=== PATIENT | male | born 1950 | race Caucasian/White ===

== ENCOUNTER 2023-08-02 19:43 | Emergency (ER) | payer MEDICARE, SELFPAY ==
[2023-08-02 19:47] VITALS: BP 109/70; PULSE 74; TEMP 36.6; O2SAT 95; BMI 29.5
--- NOTE | 2023-08-02 19:59 | CT_ITS ---
The [address] [address] Patient Name: LASHELL CABRALES MRN: [id number] date: 1950 Sex: M Assigned Patient Location: ER Current Patient Location: Accession/Order Number: [id number] Exam Date: 08/02/2023 21:25 Report Date: 08/02/2023 23:21 At the request of: FERNY ASHLEY Procedure: CT angio abd aorta runoff EXAM: CT angio abd aorta runoff HISTORY: Right leg hematoma, swelling , on anticoagulation. History of prior right lower extremity vein harvesting COMPARISON: None. TECHNIQUE: CTA of the abdomen and pelvis as well as the bilateral lower extremities. Sagittal and coronal MIP reconstructions. The image processing performed on a separate workstation. FINDINGS: TUBES AND IMPLANTS: AICD leads LOWER CHEST: Mild cardiomegaly. ABDOMEN and PELVIS ABDOMINAL WALL AND SOFT TISSUES: There is a small right knee joint effusion which communicates with a small amount of fluid seen in the posterior knee. Fluid measures 22 Hounsfield units. BONES: No suspicious lesions. Multilevel degenerative changes of the spine. No acute fracture or dislocation. ARTERIES: Mild aortoiliac atherosclerosis without dissection. There is a 4.1 centimeter infrarenal aortic aneurysm. There is moderate stenosis of the right renal artery origin. Otherwise the aortic branches, pelvic inflow and visualized lower extremity arteries are patent with three-vessel runoff to the ankle and two-vessel runoff to the foot. No evidence of active arterial extravasation. VEINS: Incompletely evaluated due to phase of imaging. LYMPH NODES: Unremarkable. PERITONEUM/ RETROPERITONEUM: Unremarkable. BOWEL: Stool filled colon and rectum. Moderate stool burden APPENDIX: Not clearly identified LIVER: No suspicious lesions. Mild enlargement measuring 18.3 centimeters with probable steatosis. GALLBLADDER: Unremarkable. BILE DUCTS: Not dilated SPLEEN: Unremarkable. PANCREAS: Unremarkable. ADRENALS: Unremarkable. KIDNEYS/ URETERS: Unremarkable. REPRODUCTIVE ORGANS: Mild prostatomegaly URINARY BLADDER: Unremarkable CT/CT angio abd aorta runoff IMPRESSION: 1. No evidence of active arterial extravasation. 2. Small right knee joint effusion which communicates with a small amount of fluid seen in the posterior knee, the fluid is mildly complex and likely represents a ruptured Hugo's cyst. 3. A 1.1 centimeter infrarenal aortic aneurysm. 4. Moderate stenosis of the right renal artery origin. 5. Mild hepatomegaly with probable steatosis. 6. Stool-filled colon and rectum with moderate stool burden. 7. Mild prostatomegaly. Electronically authenticated by: LIDIA LEMON Date: 08/02/2023 23:21
--- NOTE | 2023-08-02 20:02 | ED_ITS ---
Documented by User: [email or web address] 08/02/23 21:33 HPI HPI - General Adult General Chief complaint: Extremity Injury, Lower Stated complaint: Lower Extremity Pain Time Seen by Provider: 08/02/23 19:44 Source: patient Mode of arrival: walk-in Limitations: no limitations History of Present Illness HPI narrative: Patient is a 73-year-old male who presents to the emergency department with concern for pain and swelling in the right lower extremity. He states he hit his right anterior midshaft kline on a table almost 2 weeks ago. He states there was a hard lump and bruising to the anterior tibia but he now has diffuse swelling, pain and bruising to the entire lower leg distal to the knee. He reports pain and swelling of the foot. He is ambulatory. He takes Pradaxa daily. Related Data Previous Rx's ?Medication ?Instructions ?Recorded hydrocodone 5 mg-acetaminophen 325 1 tab PO Q6H PRN pain 3 days #12 08/02/23 mg tablet tabs Allergies Allergy/AdvReac Type Severity Reaction Status Date / Time morphine AdvReac Intermediate Hives Verified 08/02/23 19:47 Opioid HPI Opioid Management Most Recent Opioid Data: Last Pain Scale 7 08/02/23 20:21 Review of Systems ROS Constitutional Denies: fever or chills Ears, nose, mouth, and throat Denies: throat pain or nasal congestion Cardiovascular Denies: chest pain Respiratory Denies: shortness of breath or cough Gastrointestinal Denies: nausea or vomiting Genitourinary Denies: painful urination Musculoskeletal Reports: extremity pain and extremity swelling; Denies: back pain or neck pain Integumentary/Breast Denies: rash Hematologic/Lymphatic Denies: easy bruising or easy bleeding Exam Narrative Exam Narrative: Gen.: Awake, alert, in no distress Head: Normocephalic, atraumatic ENT: Moist mucous membranes Respiratory: No respiratory distress Extremities: Moves extremities equally, Right lower extremity is edematous and diffusely mildly tender of the distal foot and lower leg. Calf is diffusely swollen. No red streaking or erythema. Healing ecchymosis noted to the medial foot and ankle. Healing ecchymosis noted to the right anterior tibia. No right knee pain or swelling. Psych: Normal mood and affect Neuro: No focal neuro deficit Skin: Warm, dry, intact Constitutional Vital Signs, click to edit/add: Last Vital Signs Temp 98 F 08/02/23 19:47 Pulse 74 08/02/23 20:21 Resp 18 08/02/23 19:47 BP 109/70 08/02/23 19:47 Pulse Ox 98 08/02/23 20:29 O2 Del Method Room Air 08/02/23 20:29 Course Vital Signs Vital signs: Vital Signs Temperature 98 F 08/02/23 19:47 Pulse Rate 74 08/02/23 19:47 Respiratory Rate 18 08/02/23 19:47 Blood Pressure 109/70 08/02/23 19:47 Pulse Oximetry 95 08/02/23 19:47 Oxygen Delivery Method Room Air 08/02/23 19:47 Temperature 98 F 08/02/23 19:47 Pulse Rate 74 08/02/23 20:21 Respiratory Rate 18 08/02/23 19:47 Blood Pressure 109/70 08/02/23 19:47 Pulse Oximetry 98 08/02/23 20:29 Oxygen Delivery Method Room Air 08/02/23 20:29 Medical Decision Making [facility] Narrative Medical decision making narrative: 2129: Vital signs within normal limits, Labs obtained within normal limits as well. Patient sent for CT angio of the right lower extremity. Ultrasound is unavailable and the patient has injury with swelling and bruising to the right lower extremity. Suspect hematoma but will obtain imaging to rule out anything else concerning. Case is turned over to attending physician at this time for disposition pending CT results. Medical Records Medical records reviewed: Yes I reviewed the patient's medical records Lab Data Lab results reviewed: Yes I reviewed the patient's lab results Labs: Lab Results 08/02/23 Range/Units 20:12 WBC 8.4 (4.0-11.0) 10^3/uL RBC 4.26 L (4.70-6.10) 10^6/uL Hgb 13.5 L (14.0-18.0) g/dL Hct 40.4 L (42.0-54.0) % MCV 94.8 H (80.0-94.0) fL MCH 31.7 (25.9-34.0) pg MCHC 33.4 (29.9-35.2) g/dL RDW 12.8 (11.0-15.0) % Plt Count 213 (150-450) 10^3/uL MPV 10.5 (9.5-13.5) fL Neut % (Auto) 61.3 (43.0-75.0) % Lymph % (Auto) 20.6 (20.5-60.0) % [place] % (Auto) 9.8 (1.7-12.0) % Eos % (Auto) 7.6 H (0.9-7.0) % Baso % (Auto) 0.5 (0.2-2.0) % Neut # (Auto) 5.2 (1.4-6.5) 10^3/uL Lymph # (Auto) 1.7 (1.2-3.8) 10^3/uL [place] # (Auto) 0.8 (0.3-0.8) 10^3/uL Eos # (Auto) 0.6 (0.0-0.7) 10^3/uL Baso # (Auto) 0.0 (0.0-0.1) 10^3/uL Abs Immat Gran (auto) 0.02 (0.00-0.03) 10^3/uL Imm/Tot Granulo (auto) 0.2 (0.0-0.5) % PT 10.1 (9.0-11.6) sec INR 0.95 Sodium 139 (136-145) mmol/L Potassium 4.0 (3.5-5.1) mmol/L Chloride 101 (98-107) mmol/L Carbon Dioxide 30.1 (21.0-32.0) mmol/L Anion Gap 11.9 BUN 16.0 (7.0-18.0) mg/dL Creatinine 1.05 (0.70-1.30) mg/dL Est GFR ( Amer) >60 (>=60) Est GFR (Non-Af Amer) >60 (>=60) BUN/Creatinine Ratio 15.2 Glucose 95 (74-106) mg/dL Calcium 9.3 (8.5-10.1) mg/dL Discharge Plan Discharge Stand Alone Forms: Portal Instructions Chief Complaint: Extremity Injury, Lower Clinical Impression: Hugo's cyst, ruptured, Contusion of lower limb Patient Disposition: Home, Self-Care Prescriptions / Home Meds: New hydrocodone-acetaminophen 5-325 mg tablet 1 tab PO Q6H PRN (Reason: pain) 3 Days Qty: 12 0RF Rx Instructions: DX: M79.604 Print Language: Welsh Instructions: Contusion in Adults (ED) Additional Instructions: follow up with orthopedics Referrals: SUNG CAIN [Primary Care Provider] - 1 week Documented by User: Master Churchill MD 08/02/23 23:52 HPI HPI - General Adult General Chief complaint: Extremity Injury, Lower Stated complaint: Lower Extremity Pain Time Seen by Provider: 08/02/23 19:44 Related Data Previous Rx's ?Medication ?Instructions ?Recorded hydrocodone 5 mg-acetaminophen 325 1 tab PO Q6H PRN pain 3 days #12 08/02/23 mg tablet tabs Allergies Allergy/AdvReac Type Severity Reaction Status Date / Time morphine AdvReac Intermediate Hives Verified 08/02/23 19:47 Opioid HPI Opioid Management Most Recent Opioid Data: Last Pain Scale 7 08/02/23 20:21 Exam Constitutional Vital Signs, click to edit/add: Last Vital Signs Temp 98 F 08/02/23 19:47 Pulse 74 08/02/23 20:21 Resp 18 08/02/23 19:47 BP 109/70 08/02/23 19:47 Pulse Ox 98 08/02/23 20:29 O2 Del Method Room Air 08/02/23 20:29 Course Vital Signs Vital signs: Vital Signs Temperature 98 F 08/02/23 19:47 Pulse Rate 74 08/02/23 19:47 Respiratory Rate 18 08/02/23 19:47 Blood Pressure 109/70 08/02/23 19:47 Pulse Oximetry 95 08/02/23 19:47 Oxygen Delivery Method Room Air 08/02/23 19:47 Temperature 98 F 08/02/23 19:47 Pulse Rate 74 08/02/23 20:21 Respiratory Rate 18 08/02/23 19:47 Blood Pressure 109/70 08/02/23 19:47 Pulse Oximetry 98 08/02/23 20:29 Oxygen Delivery Method Room Air 08/02/23 20:29 Medical Decision Making [facility] Narrative Medical decision making narrative: 2129: Vital signs within normal limits, Labs obtained within normal limits as well. Patient sent for CT angio of the right lower extremity. Ultrasound is unavailable and the patient has injury with swelling and bruising to the right lower extremity. Suspect hematoma but will obtain imaging to rule out anything else concerning. Case is turned over to attending physician at this time for disposition pending CT results. CT returned with findings of Right knee effusion and likely ruptured hugo's cyst. Pelvic flow and visualized lower extremity arteries are patient with three-vessel runoff to the ankle and two-vessel runoff to the foot. patient advised of the findings and referred to orthopedics Lab Data Labs: Lab Results 08/02/23 Range/Units 20:12 WBC 8.4 (4.0-11.0) 10^3/uL RBC 4.26 L (4.70-6.10) 10^6/uL Hgb 13.5 L (14.0-18.0) g/dL Hct 40.4 L (42.0-54.0) % MCV 94.8 H (80.0-94.0) fL MCH 31.7 (25.9-34.0) pg MCHC 33.4 (29.9-35.2) g/dL RDW 12.8 (11.0-15.0) % Plt Count 213 (150-450) 10^3/uL MPV 10.5 (9.5-13.5) fL Neut % (Auto) 61.3 (43.0-75.0) % Lymph % (Auto) 20.6 (20.5-60.0) % [place] % (Auto) 9.8 (1.7-12.0) % Eos % (Auto) 7.6 H (0.9-7.0) % Baso % (Auto) 0.5 (0.2-2.0) % Neut # (Auto) 5.2 (1.4-6.5) 10^3/uL Lymph # (Auto) 1.7 (1.2-3.8) 10^3/uL [place] # (Auto) 0.8 (0.3-0.8) 10^3/uL Eos # (Auto) 0.6 (0.0-0.7) 10^3/uL Baso # (Auto) 0.0 (0.0-0.1) 10^3/uL Abs Immat Gran (auto) 0.02 (0.00-0.03) 10^3/uL Imm/Tot Granulo (auto) 0.2 (0.0-0.5) % PT 10.1 (9.0-11.6) sec INR 0.95 Sodium 139 (136-145) mmol/L Potassium 4.0 (3.5-5.1) mmol/L Chloride 101 (98-107) mmol/L Carbon Dioxide 30.1 (21.0-32.0) mmol/L Anion Gap 11.9 BUN 16.0 (7.0-18.0) mg/dL Creatinine 1.05 (0.70-1.30) mg/dL Est GFR ( Amer) >60 (>=60) Est GFR (Non-Af Amer) >60 (>=60) BUN/Creatinine Ratio 15.2 Glucose 95 (74-106) mg/dL Calcium 9.3 (8.5-10.1) mg/dL Discharge Plan Discharge Stand Alone Forms: Portal Instructions Chief Complaint: Extremity Injury, Lower Clinical Impression: Hugo's cyst, ruptured, Contusion of lower limb Patient Disposition: Home, Self-Care Prescriptions / Home Meds: New hydrocodone-acetaminophen 5-325 mg tablet 1 tab PO Q6H PRN (Reason: pain) 3 Days Qty: 12 0RF Rx Instructions: DX: M79.604 Print Language: Welsh Instructions: Contusion in Adults (ED) Additional Instructions: follow up with orthopedics Referrals: SUNG CAIN [Primary Care Provider] - 1 week
[2023-08-02 20:19] LABS: Basophils Percent Auto 0.5 % (0.2-2.0); Eosinophils Absolute Auto 0.6 10^3/uL (0.0-0.7); Eosinophils Percent Auto 7.6 % (0.9-7.0); Hematocrit 40.4 % (42.0-54.0); Hemoglobin 13.5 g/dL (14.0-18.0); Immature Granulocytes Abs Auto 0.02 10^3/uL (0.00-0.03); Immature Granulocytes Pct Auto 0.2 % (0.0-0.5); Lymphocytes Absolute Auto 1.7 10^3/uL (1.2-3.8); Lymphocytes Percent Auto 20.6 % (20.5-60.0); Mean Corpuscular HGB Conc 33.4 g/dL (29.9-35.2); Mean Corpuscular Hemoglobin 31.7 pg (25.9-34.0); Mean Corpuscular Volume 94.8 fL (80.0-94.0); Mean Platelet Volume 10.5 fL (9.5-13.5); Monocytes Absolute Auto 0.8 10^3/uL (0.3-0.8); Monocytes Percent Auto 9.8 % (1.7-12.0); Neutrophils Absolute Auto 5.2 10^3/uL (1.4-6.5); Neutrophils Percent Auto 61.3 % (43.0-75.0); Platelet Count 213 10^3/uL (150-450); Red Blood Count 4.26 10^6/uL (4.70-6.10); Red Cell Distribution Width 12.8 % (11.0-15.0); White Blood Count 8.4 10^3/uL (4.0-11.0)
[2023-08-02 20:21] VITALS: PULSE 74
--- NOTE | 2023-08-02 20:26 | PC.NURSE ---
Patient states that he hit his right kline on his coffee table a couple weeks ago which initially led to a localized lump to form. It resolved, but recently, he started having pain again that moved to behind the right knee and today his right leg is very painful, swollen and there is bruising about the lower kline and foot. He takes a blood thinner daily.
[2023-08-02 20:27] LABS: Anion Gap 11.9; BUN Creatinine Ratio 15.2; Calcium 9.3 mg/dL (8.5-10.1); Carbon Dioxide 30.1 mmol/L (21.0-32.0); Chloride 101 mmol/L (98-107); Estimated GFR (African America >60 (>=60); Estimated GFR (Non-African Ame >60 (>=60); Glucose 95 mg/dL (74-106); Sodium 139 mmol/L (136-145)
[2023-08-02 20:29] VITALS: O2SAT 98
[2023-08-02 20:50] LABS: INR 0.95; Prothrombin Time 10.1 sec (9.0-11.6)
== END 2023-08-03 00:15 | disposition home or self-care (01) ==
PROVIDERS: Physician Assistant; Emergency Provider Internal Medicine; PCP Family Medicine
DX: S80.12XA Contusion of left lower leg, initial encounter (principal); M66.0 Rupture of popliteal cyst; M79.89 Other specified soft tissue disorders; W22.03XA Walked into furniture, initial encounter
CPT/HCPCS: 36415; 75635; 80048; 85025; 85610; 99284; Q9967